=== PATIENT | female | born 2000 | race Caucasian/White ===

== ENCOUNTER 2021-06-02 14:11 | Emergency (ER) | payer SELFPAY ==
--- OUTSIDE RECORDS SUMMARY | 2021-06-02 14:14 | XMS REPORT | Continuity of Care Document ---
:[address] [facility] t Address [address] [place] [address] Dr. Humphries [address] [place] [id number] Care Team Providers Name Role Phone Unavailable Unavailable Unavailable Problems This patient has no known problems. Allergies, Adverse Reactions, Alerts This patient has no known allergies or adverse reactions. Medications This patient has no known medications. Procedures This patient has no known procedures. Results This patient has no known results.
[2021-06-02] MEDS ORDERED: HYDROCODONE/APAP 5/325 MG TAB ONE (14:54)
--- NOTE | 2021-06-02 15:55 | RAD REPORT ---
EXAM DESCRIPTION: RAD - Wrist Left 3 View - 06/02/2021 3:33 pm CLINICAL HISTORY: Left wrist pain status post injury FINDINGS: Mildly displaced fracture proximal diametaphysis ulna. No dislocation
--- NOTE | 2021-06-02 15:58 | ER ---
Nurse's Notes [facility] Name: Ana Sandy Age: 20 yrs Sex: Female : 2000 Arrival Date: 06/02/2021 Time: 14:14 Bed 30 Private MD: Diagnosis: Left Distal Ulnar Fracture Presentation: 06/02 14:31 Chief complaint: Patient states: Slammed L wrist in door at home 45 min [employer]. Abrasion ll1 noted. Coronavirus screen: Vaccine status: Patient reports being unvaccinated. Client denies travel out of the [place] in the last 14 days. At this time, the client does not indicate any symptoms associated with coronavirus-19. Ebola Screen: Patient denies travel to an Ebola-affected area in the 21 days before illness onset. Initial Sepsis Screen: Does the patient meet any 2 criteria? No. Patient's initial sepsis screen is negative. Does the patient have a suspected source of infection? No. Patient's initial sepsis screen is negative. Risk Assessment: Do you want to hurt yourself or someone else? Patient reports no desire to harm self or others. Onset of symptoms was June 02, 2021. 14:31 Method Of Arrival: Ambulatory ll1 14:31 Acuity: SANTANA 4 ll1 Triage Assessment: 14:33 General: Appears uncomfortable, Behavior is calm, cooperative, appropriate for age. ll1 Pain: Complains of pain in L wrist. Musculoskeletal: Reports pain in L wrist. Injury Description: Bruise. Historical: - Allergies: 14:32 No Known Allergies; ll1 - PMHx: 14:32 None; ll1 - PSHx: 14:32 None; ll1 - Immunization history:: Client reports having NOT received the Covid vaccine. - Social history:: Smoking status: Reported history of juuling and/or vaping. Screenin:53 Abuse screen: Denies threats or abuse. Nutritional screening: No deficits noted. ll1 Tuberculosis screening: No symptoms or risk factors identified. Fall Risk Total Frey Fall Scale indicates No Risk (0-24 pts). Assessment: 14:53 Reassessment: No changes from previously documented assessment. Patient and/or family ll1 updated on plan of care and expected duration. Pain level reassessed. Patient is alert, oriented x 3, equal unlabored respirations, skin warm/dry/pink. 15:57 Reassessment: Patient appears in no apparent distress at this time. Patient and/or jb4 family updated on plan of care and expected duration. Pain level reassessed. Patient is alert, oriented x 3, equal unlabored respirations, skin warm/dry/pink. assisted provider in splinting affected extremity. Vital Signs: 14:31 BP 131 / 68; Pulse 99; Resp 16; Temp 99.3; Pulse Ox 100% ; Weight 52.16 kg; Height 5 ll1 ft. 4 in. (162.56 cm); Pain 10/10; 14:31 Body Mass Index 19.74 (52.16 kg, 162.56 cm) ll1 ED Course: 14:14 Patient arrived in ED. mr 14:32 Triage completed. ll1 14:33 Arm band placed on Patient placed in an exam room, on a stretcher. ll1 14:48 Ernesto Real PA is PHCP. jr8 14:48 Steven Escobar MD is Attending Physician. jr8 14:53 Patient has correct armband on for positive identification. ll1 15:35 Wrist Left (3 View) XRAY In Process Unspecified. EDNJ 15:52 Carolyn Whitehead, CARSON is Primary Nurse. iw 15:57 Govind Peters MD is Referral Physician. jr8 15:57 No provider procedures requiring assistance completed. Patient did not have IV access jb4 during this emergency room visit. Administered Medications: 14:53 Drug: HYDROcodone-acetaminophen 5 mg-325 mg 1 tabs {Note: pain 8/10. rass 0.} Route: PO;ll1 16:05 Follow up: Response: No adverse reaction; Pain is decreased jb4 Outcome: 15:58 Discharge ordered by . jr8 16:04 Discharged to home ambulatory, with friend. jb4 16:04 Condition: stable 16:04 Discharge instructions given to patient, Instructed on discharge instructions, follow up and referral plans. medication usage, Demonstrated understanding of instructions, follow-up care, medications, Prescriptions given X 2. 16:05 Patient left the ED. jb4 Signatures: Dispatcher [employer] [facility] Sarah Black mr Carolyn Whitehead RN RN Ernesto Real PA PA jr8 Mauri Villalpando RN RN jb4 Melchor, Lynsay, RN RN ll1
--- NOTE | 2021-06-02 15:58 | EDPHYS ---
Physician Documentation [facility] Name: Ana Sandy Age: 20 yrs Sex: Female : 2000 Arrival Date: 06/02/2021 Time: 14:14 Bed 30 Private MD: ED Physician Steven Escobar HPI: 06/02 16:01 This 20 yrs old Female presents to ER via Ambulatory with complaints of Wrist Injury. jr8 16:02 The patient or guardian reports a contusion, decreased range of motion, pain, swelling, jr8 tenderness. The complaints affect the left wrist diffusely. Context: The problem was sustained at home, resulted from a direct blow. Onset: The symptoms/episode began/occurred acutely, today. Modifying factors: The symptoms are alleviated by nothing, the symptoms are aggravated by movement. Associated signs and symptoms: The patient has no apparent associated signs or symptoms. The patient has not experienced similar symptoms in the past. The patient has not recently seen a physician. Patient stated that 1 door was open on one side of the house and was going to close the other one and the wind caught and slammed her wrist between the door and the wall frame. Has had pain with bruising and decreased range of motion since then.. Historical: - Allergies: 14:32 No Known Allergies; ll1 - PMHx: 14:32 None; ll1 - PSHx: 14:32 None; ll1 - Immunization history:: Client reports having NOT received the Covid vaccine. - Social history:: Smoking status: Reported history of juuling and/or vaping. ROS: 16:02 Eyes: Negative for injury, pain, redness, and discharge, ENT: Negative for injury, jr8 pain, and discharge, Neck: Negative for injury, pain, and swelling, Cardiovascular: Negative for chest pain, palpitations, and edema, Respiratory: Negative for shortness of breath, cough, wheezing, and pleuritic chest pain, Abdomen/GI: Negative for abdominal pain, nausea, vomiting, diarrhea, and constipation, Back: Negative for injury and pain, Skin: Negative for injury, rash, and discoloration, Neuro: Negative for headache, weakness, numbness, tingling, and seizure. 16:02 MS/extremity: Positive for decreased range of motion, ecchymosis, pain, swelling, tenderness, of the Left wrist. Exam: 16:02 Constitutional: This is a well developed, well nourished patient who is awake, alert, jr8 and in no acute distress. Cardiovascular: Regular rate and rhythm with a normal S1 and S2. No gallops, murmurs, or rubs. Normal PMI, no JVD. No pulse deficits. Respiratory: Lungs have equal breath sounds bilaterally, clear to auscultation and percussion. No rales, rhonchi or wheezes noted. No increased work of breathing, no retractions or nasal flaring. Skin: Warm, dry with normal turgor. Normal color with no rashes, no lesions, and no evidence of cellulitis. Neuro: Awake and alert, GCS 15, oriented to person, place, time, and situation. Motor strength 5/5 in all extremities. Sensory grossly intact 16:02 Musculoskeletal/extremity: Extremities: grossly normal except: noted in the Left wrist: decreased ROM, ecchymosis, pain, tenderness, Patient has ecchymosis to the medial and lateral aspects of the left wrist with decreased range of motion upon pronation and supination of the left arm. Patient is able to flex and extend wrist, ROM: limited active range of motion, limited passive range of motion, limited active range of motion due to pain, limited passive range of motion due to pain, Circulation is intact in all extremities. Sensation intact. Vital Signs: 14:31 BP 131 / 68; Pulse 99; Resp 16; Temp 99.3; Pulse Ox 100% ; Weight 52.16 kg; Height 5 ll1 ft. 4 in. (162.56 cm); Pain 10/10; 14:31 Body Mass Index 19.74 (52.16 kg, 162.56 cm) ll1 Procedures: 15:57 Splinting: Splint applied to left arm using Orthoglass splint, applied by myself. jr8 Examined by me, post splint application: neurovascular intact, 2+ distal pulses palpable, brisk capillary refill noted, Patient tolerated well. MDM: 14:49 Patient medically screened. jr8 15:57 Data reviewed: vital signs, nurses notes, radiologic studies, plain films. Data jr8 interpreted: Pulse oximetry: on room air is 100 %. Interpretation: normal. Counseling: I had a detailed discussion with the patient and/or guardian regarding: the historical points, exam findings, and any diagnostic results supporting the discharge/admit diagnosis, radiology results, the need for outpatient follow up, a orthopedic surgeon, to return to the emergency department if symptoms worsen or persist or if there are any questions or concerns that arise at home. 06/02 14:47 Order name: Wrist Left (3 View) XRAY; Complete Time: 16:08 ll1 Administered Medications: 14:53 Drug: HYDROcodone-acetaminophen 5 mg-325 mg 1 tabs {Note: pain 8/10. rass 0.} Route: PO;ll1 16:05 Follow up: Response: No adverse reaction; Pain is decreased jb4 Disposition: 18:53 Co-signature as Attending Physician, Steven Escobar MD I agree with the assessment and tye plan of care. Disposition Summary: 06/02/21 15:58 Discharge Ordered Location: Home jr8 Problem: new jr8 Symptoms: have improved jr8 Condition: Stable jr8 Diagnosis - Left Distal ulnar Fracture jr8 - Left Distal Ulnar Fracture jr8 Followup: jr8 - With: Govind Peters MD - When: 5 - 6 days - Reason: Recheck today's complaints, Continuance of care, Re-evaluation by your physician Discharge Instructions: - Discharge Summary Sheet jr8 - Wrist Fracture Treated With Immobilization jr8 Forms: - Medication Reconciliation Form jr8 - Thank You Letter jr8 - Antibiotic Education jr8 - Prescription Opioid Use jr8 Prescriptions: - Ibuprofen 600 mg Oral Tablet - take 1 tablet by ORAL route every 8 hours As needed take with food; 30 tablet; jr8 Refills: 0, Product Selection Permitted - Tylenol-Codeine #3 300 mg-30 mg Oral - take 2 tablet by ORAL route every 8 hours As needed; 24 tablet; Refills: 0, jr8 Product Selection Permitted Signatures: Dispatcher [employer] Steven Calderón MD MD cha Roszak, Josh, PA PA jr8 Estefania Roche RN RN ll1 Mauri Villalpando RN jb4
[2021-06-02 20:11] VITALS: BP 131/68; TEMP 99.3; O2SAT 100
== END 2021-06-02 16:05 | disposition home or self-care (01) ==
LOC: ER 14:11
PROC: 2W3DX1Z Immobilization of Left Lower Arm using Splint (ICD-10-PCS; principal; 2021-06-02)
DX: S52.602A Unspecified fracture of lower end of left ulna, initial encounter for closed fracture (principal); W23.0XXA Caught, crushed, jammed, or pinched between moving objects, initial encounter; Y92.009 Unspecified place in unspecified non-institutional (private) residence as the place of occurrence of the external cause
CPT/HCPCS: 99283